=== PATIENT | female | born 1990 | race Caucasian/White ===

== ENCOUNTER 2018-09-20 00:21 | Emergency (ER) | payer SELFPAY ==
[~2018-09-20] VITALS: Ht 167.6 cm; Wt 85.9 kg
[~2018-09-20 00:21] MED LIST: ALBU18HF INHALATION; AZIT250T PO; PRED20TA PO
[2018-09-20 00:24] VITALS: BP 101/61; PULSE 81; RESP 21; Ht 167.6 cm; Wt 85.9 kg
== END 2018-09-20 01:44 | disposition left against medical advice (07) ==
LOC: FTE 00:21
DX: Z53.21 Procedure and treatment not carried out due to patient leaving prior to being seen by health care provider (principal)